=== PATIENT | female | born 1995 | race Caucasian/White ===

== ENCOUNTER 2016-12-08 00:26 | Emergency (ER) | payer OTHER ==
[~2016-12-08] VITALS: Ht 160 cm; Wt 96.0 kg
[2016-12-08 00:37] VITALS: Ht 160 cm; Wt 96.0 kg
[2016-12-08] MEDS ORDERED: IBUPROFEN 800 MG TAB PO ONE (05:00)
[2016-12-08] MEDS ORDERED: AZIT250T94 PO (05:13)
[2016-12-08] MEDS ORDERED: ACET500C5 PO (05:13)
[2016-12-08] MEDS ORDERED: IBUP800T25 PO (05:13)
[2016-12-08] MEDS ORDERED: OSLT75C PO (05:13)
[2016-12-08] MEDS ORDERED: LISI30TA47 PO (05:13)
[2016-12-08] MEDS ORDERED: UDROBDM PO (05:14)
--- NOTE | 2016-12-08 05:22 | ERD ---
ER Documentation Chief Complaint Date/Time DATE: 12/08/16 TIME: 05:19 Chief Complaint Pt c/o flu like s/s for 9 days HPI This a 21-year-old female who presents to the emergency department today complaining of sore throat, cough, body aches, fevers for the past week. States that she is here with her boyfriend who has the same symptoms. States she is homeless. States that she has been detoxing from drugs and was in custodial until a week ago. States that she has a history of high blood pressure and has been out of medications and she has been out of custodial. Denies any vomiting or diarrhea. ROS All systems reviewed and are negative except as per history of present illness. Medications Home Meds Active Scripts Guaifenesin-Dextromethorphan* (Robitussin* DM) 100MG/10MG/5ML Syrup, 10 ML PO Q4H Y for COUGH for 5 Days, ML Prov:KATIA LAZOC 12/08/16 Azithromycin* (Zithromax*) 250 Mg Tablet, 250 MG PO .ZPACK DIRECTED, #6 TAB TAKE 500 MG (2 TABS) THE FIRST DAY THEN 250 MG (1 TAB) DAYS 2-5 Prov:KATIA LAZO-C 12/08/16 Acetaminophen* (Tylophen*) 500 Mg Capsule, 1 CAP PO Q6H Y for PAIN AND OR ELEVATED TEMP, #30 CAP Prov:KAITA LAZOC 12/08/16 Ibuprofen* (Motrin*) 800 Mg Tab, 800 MG PO Q6, #30 TAB Prov:KATIA LAZOC 12/08/16 Oseltamivir Phosphate* (Tamiflu*) 75 Mg Capsule, 75 MG PO BID for 5 Days, CAP Prov:KATIA LAZO-C 12/08/16 Lisinopril* (Lisinopril*) 30 Mg Tablet, 30 MG PO DAILY, #30 TAB Prov:KATIA LAZO-C 12/08/16 PMhx/Soc Medical and Surgical Hx: pt denies Medical Hx, pt denies Surgical Hx Hx Alcohol Use: Yes (socially) Hx Substance Use: Yes (iv drug use) Hx Tobacco Use: Yes Smoking Status: Current every day smoker Physical Exam Vitals Vital Signs Date Time Temp Pulse Resp B/P Pulse Ox O2 Delivery O2 Flow Rate FiO2 12/08/16 06:07 98.3 84 22 190/132 100 Room Air 12/08/16 00:37 96.9 100 20 175/117 100 Physical Exam Const: No acute distress Head: Atraumatic Eyes: Normal Conjunctiva ENT: Ears TMs normal. Nose no drainage. Throat no erythema no exudate. Neck: Full range of motion..~ No meningismus. Resp: Clear to auscultation bilaterally. No absent breath sounds. Cardio: Regular rate and rhythm, no murmurs Abd: Soft, non tender, non distended. Normal bowel sounds Skin: No petechiae or rashes Neur: Awake and alert Psych: Normal Mood and Affect Results 24 hrs Current Medications Medications (Trade) Dose Ordered Sig/Samira Route PRN Reason Start Time Stop Time Status Last Admin Dose Admin Ibuprofen (Motrin) 800 mg ONCE ONCE PO 12/08/16 05:00 12/08/16 05:01 DC 12/08/16 05:08 Lisinopril (Zestril) 20 mg ONCE ONCE PO 12/08/16 05:30 12/08/16 05:31 DC 12/08/16 05:58 Procedures/MDM This is a 21-year-old female who presents to the emergency department today for influenza-like symptoms. Patient was afebrile here in the emergency department. Her pulse was 100. Her oxygen saturation is 100% I do not feel that she requires further laboratory workup or imaging at this time. Patient is currently detoxing however have low suspicion for withdrawal symptoms at this time. Patient's blood pressure was elevated at 175/117. Patient has been off her lisinopril for the past week. Patient was given lisinopril here in the emergency department to treat hypertension. Patient denies any significant headache, blurred vision, nausea or vomiting. I have low suspicion for hypertensive emergency. have low suspicion for strep pharyngitis, peritonsillar abscess, retropharyngeal abscess, otitis media, PNA, sinusitis, abscess, meningitis, sepsis, or other acute infectious bacterial process. Patient was given Motrin here in the emergency department. I will give her a prescription for Tamiflu, Motrin, Tylenol, Robitussin for flulike symptoms. Patient did have a significant cough and therefore did give her azithromycin to cover her for possible bronchitis as well. She was also given a prescription for lisinopril. At this time the patient is stable for discharge and outpatient management. They should follow up with their PCP in the next 1-2. They may return to the emergency department sooner if symptoms persist or worsen. Patient understood and agreed with the plan. Discussed the patient with Dr. Gutierrez and he is in agreement with the plan. Patient's blood pressure continued to be elevated. She was given lisinopril here in the emergency department. Patient was morning and sleeping comfortably in the bed. I have discussed the patient with Dr. Cavanaugh and he feels that the patient is stable for discharge and outpatient management. Departure Diagnosis: Primary Impression: Influenza-like symptoms Condition: Fair Patient Instructions: Influenza (Adult) Referrals: [facility] YOU HAVE RECEIVED A MEDICAL SCREENING EXAM AND THE RESULTS INDICATE THAT YOU DO NOT HAVE A CONDITION THAT REQUIRES URGENT TREATMENT IN THE EMERGENCY DEPARTMENT. FURTHER EVALUATION AND TREATMENT OF YOUR CONDITION CAN WAIT UNTIL YOU ARE SEEN IN YOUR DOCTORS OFFICE WITHIN THE NEXT 1-2 DAYS. IT IS YOUR RESPONSIBILITY TO MAKE AN APPOINTMENT FOR FOLOW-UP CARE. IF YOU HAVE A PRIMARY DOCTOR --you should call your primary doctor and schedule an appointment IF YOU DO NOT HAVE A PRIMARY DOCTOR YOU CAN CALL OUR PHYSICIAN REFERRAL HOTLINE AT IF YOU CAN NOT AFFORD TO SEE A PHYSICIAN YOU CAN CHOSE FROM THE FOLLOWING [facility] [address] [facility]. [facility] [address] [facility] [facility] [address] [facility] [facility] [address] [facility] [facility] [address] [facility] [facility]. [address] Additional Instructions: Call your primary care doctor TOMORROW for an appointment during the next 1-2 days.See the doctor sooner or return here if your condition worsens before your appointment time. Take lisinopril for high blood pressure as prescribed Take Tamiflu for flulike symptoms Take azithromycin as prescribed Take Robitussin for cough Take Tylenol or Motrin for fever or pain KATIA LAZO PA-C Dec 08, 2016 05:22
[2016-12-08] MEDS ORDERED: LISINOPRIL 20 MG TAB PO ONE (05:30)
[2016-12-08 07:05] VITALS: BP 168/116; PULSE 90; RESP 16; TEMP 98.9
== END 2016-12-08 07:22 | disposition home or self-care (01) ==
LOC: FTE 00:26
DX: R50.9 Fever, unspecified (principal); F17.210 Nicotine dependence, cigarettes, uncomplicated; J02.9 Acute pharyngitis, unspecified; R05 Cough; M79.1 Myalgia
CPT/HCPCS: Z7502; Z7610; 99284